=== PATIENT | male | born 1970 | race Caucasian/White ===

== ENCOUNTER → 2019-04-23 09:47 | Outpatient (CLI) | payer OTHER, SELFPAY ==
[2019-04-23 11:40] LABS: Alanine Aminotransferase 77 U/L (12-78); Albumin Level 3.9 gm/dL (3.4-5.0); Albumin/Globulin Ratio 1.2 (1.1-1.8); Alkaline Phosphatase 65 U/L (46-116); Anion Gap 10.3 mEq/L (5-15); Aspartate Amino Transferase 25 U/L (15-37); Blood Urea Nitrogen 14 mg/dL (7-18); Calcium 9.3 mg/dL (8.5-10.1); Carbon Dioxide 32 mmol/L (21.0-32.0); Chloride 102 mmol/L (98-107); Chol/HDL Ratio 4.4 (1-3.5); Cholesterol 172 mg/dL (140-200); Estimated Glomerular Filt Rate 71 ml/min (>60); Free Thyroxine Index 2.2 ug/dL (5.93-13.13); GFR (African American) 86 ML/MIN (>60); Globulin 3.2 gm/dl (1.3-3.2); Glucose 107 mg/dL (74-106); HDL Cholesterol 39 mg/dL (27-67); LDL Cholesterol 96 mg/dL (0-130); Potassium 4.3 mmoL/L (3.5-5.1); Sodium 140 mmol/L (136-145); T4 (Thyroxine) 6.4 ug/dl (4.7-13.3); Thyroid Stimulating Hormone 2.69 uIU/ml (0.358-3.740); Total Protein,Serum 7.1 gm/dL (6.4-8.2); Triglycerides 187 mg/dL (30-200); Triiodothryronine (T3) Uptake 34 % (31-39); VLDL Cholesterol 37 mg/dL (0-40)
== END ==
PROVIDERS: Visit Provider Internal Medicine Adolescent Medicine
DX: Z00.00 Encounter for general adult medical examination without abnormal findings (principal)
CPT/HCPCS: 36415; 80053; 80061; 84436; 84443; 84479; 84550

== ENCOUNTER → 2020-02-01 12:43 | Outpatient (CLI) | payer OTHER, SELFPAY ==
[2020-02-01 13:32] LABS: Basophils # 0.1 K/mm3 (0-0.2); Basophils % 0.7 % (0.1-2.0); Eosinophils # 0.2 K/mm3 (0.0-0.4); Eosinophils % 2.2 % (0.1-12.0); Hematocrit 43.6 % (42.0-52.0); Hemoglobin 14.9 g/dL (14.1-18.0); Lymphocytes # 1.6 K/mm3 (0.7-4.5); Lymphocytes % 17.8 % (10-50); Mean Corpuscular HGB Conc 34.1 g/dL (31.8-35.4); Mean Corpuscular Hemoglobin 27.4 pg (27.0-31.2); Mean Corpuscular Volume 80.4 fl (80-94); Mean Platelet Volume 7.2 fl (7.4-10.4); Monocytes # 0.6 K/mm3 (0.1-1.0); Monocytes % 6.7 % (1.7-9.3); Neutrophils # 6.4 K/mm3 (1.8-7.8); Neutrophils % 72.7 % (37.0-80.0); Platelet Count 263 K/mm3 (142-424); Red Blood Count 5.42 M/mm3 (4.60-6.20); Red Cell Distribution Width 14.4 % (11.5-17.5); White Blood Count 8.9 K/mm3 (4.8-10.8)
[2020-02-01 15:09] LABS: Chloride 102 mmol/L (98-107)
[2020-02-01 15:10] LABS: Potassium 3.9 mmoL/L (3.5-5.1); Sodium 139 mmol/L (136-145)
[2020-02-01 15:12] LABS: Alanine Aminotransferase 63 U/L (12-78); Aspartate Amino Transferase 40 U/L (17-59); Blood Urea Nitrogen 13 mg/dl (9-20); Estimated Glomerular Filt Rate 89 ml/min (>60); GFR (African American) 108 ML/MIN (>60)
[2020-02-01 15:13] LABS: Albumin Level 4.6 g/dl (3.5-5.0); Albumin/Globulin Ratio 1.9 (1.1-1.8); Alkaline Phosphatase 42 U/L (38-126); Anion Gap 12.9 mEq/L (5-15); Bilirubin,Total 1.1 mg/dl (0.2-1.3); Calcium 9.9 mg/dl (8.4-10.2); Carbon Dioxide 28 mmol/L (22.0-30.0); Globulin 2.4 g/dL (1.3-3.2); Glucose 86 mg/dl (74-100); Uric Acid 6.1 mg/dl (3.5-8.5)
== END ==
PROVIDERS: Visit Provider Nurse Practitioner Family
DX: L50.9 Urticaria, unspecified (principal); L30.9 Dermatitis, unspecified; M10.9 Gout, unspecified
CPT/HCPCS: 36415; 80053; 84550; 85025

== ENCOUNTER → 2020-10-31 15:53 | Outpatient (CLI) | payer OTHER, SELFPAY ==
[2020-10-31 16:00] LABS: Basophils # 0.1 K/mm3 (0-0.2); Basophils % 0.5 % (0.1-2.0); Eosinophils # 0.2 K/mm3 (0.0-0.4); Eosinophils % 1.8 % (0.1-12.0); Hematocrit 51.7 % (42.0-52.0); Hemoglobin 17.5 g/dL (14.1-18.0); Lymphocytes # 1.8 K/mm3 (0.7-4.5); Lymphocytes % 16.2 % (10-50); Mean Corpuscular HGB Conc 33.8 g/dL (31.8-35.4); Mean Corpuscular Volume 82.9 fl (80-94); Monocytes # 0.5 K/mm3 (0.1-1.0); Monocytes % 4.7 % (1.7-9.3); Neutrophils # 8.3 K/mm3 (1.8-7.8); Neutrophils % 76.7 % (37.0-80.0); Platelet Count 273 K/mm3 (142-424); Red Blood Count 6.24 M/mm3 (4.60-6.20); White Blood Count 10.8 K/mm3 (4.8-10.8)
[2020-10-31 16:48] LABS: Alanine Aminotransferase 60 U/L (12-78); Albumin Level 5.1 g/dl (3.5-5.0); Alkaline Phosphatase 52 U/L (38-126); Aspartate Amino Transferase 38 U/L (17-59); Bilirubin,Direct 0.2 mg/dl (0.0-0.4); Bilirubin,Total 1.2 mg/dl (0.2-1.3); Chol/HDL Ratio 3.3 (1-3.5); Cholesterol 157 mg/dl (140-200); HDL Cholesterol 48 mg/dl (40-60); Total Protein,Serum 8.1 g/dl (6.3-8.2); Triglycerides 309 mg/dl (30-150); VLDL Cholesterol 62 mg/dL (0-40)
[2020-10-31 16:51] LABS: Alanine Aminotransferase 60 U/L (12-78); Albumin Level 5.1 g/dl (3.5-5.0); Albumin/Globulin Ratio 1.8 (1.1-1.8); Alkaline Phosphatase 54 U/L (38-126); Anion Gap 12.2 mEq/L (5-15); Aspartate Amino Transferase 37 U/L (17-59); Bilirubin,Total 1.3 mg/dl (0.2-1.3); Blood Urea Nitrogen 18 mg/dl (9-20); Calcium 10.3 mg/dl (8.4-10.2); Carbon Dioxide 30 mmol/L (22.0-30.0); Chloride 102 mmol/L (98-107); Estimated Glomerular Filt Rate 79 ml/min (>60); GFR (African American) 95 ML/MIN (>60); Globulin 2.9 g/dL (1.3-3.2); Glucose 116 mg/dl (74-100); Magnesium 2.3 mg/dl (1.6-2.3); Potassium 4.2 mmoL/L (3.5-5.1); Sodium 140 mmol/L (136-145)
[2020-10-31 17:00] LABS: Direct LDL Cholesterol 61.47 mg/dL (100-129)
[2020-10-31 17:05] LABS: 25-OH Vitamin D, Total 32.2 ng/mL (30-100)
[2020-10-31 17:06] LABS: Free Thyroxine Index 2.1 ug/dL (5.93-13.13); T4 (Thyroxine) 6.8 ug/dl (5.53-11.0); Triiodothryronine (T3) Uptake 31 % (23.5-40.5)
[2020-10-31 17:20] LABS: Thyroid Stimulating Hormone 2.57 uIU/mL (0.465-4.68)
[2020-10-31 17:39] LABS: Vitamin B12 381 pg/mL (239-931)
[2020-11-01 13:45] LABS: Hemoglobin A1C 5.3 % (4.0-6.0)
== END ==
PROVIDERS: Urology; PCP Internal Medicine Adolescent Medicine; Visit Provider Physician Assistant
DX: R06.00 Dyspnea, unspecified (principal); R00.2 Palpitations; E78.5 Hyperlipidemia, unspecified
CPT/HCPCS: 36415; 80053; 80061; 80076; 82306; 82607; 83036; 83735; 84403; 84436; 84443; 84479; 85025; 93270

== ENCOUNTER → 2020-11-16 14:45 | Outpatient (CLI) | payer OTHER, SELFPAY ==
--- NOTE | 2020-11-16 14:46 | CA_ITS ---
APPROVED REPORT EXAM: Comprehensive 2D, Doppler, and color-flow Echocardiogram Bank Vault Clerk: Lizette Martin RVT Ht: 5 ft 8 in Wt: 207lbs BSA: 2.07 BP: 148/94 mmHg Indications: SOA,PALPS,BARAJAS,HT,HLD 2D Dimensions LVOT 1.88 cm (M/F) 1.5-2.5 LA Volume 18.40 mL LA Volume Index 8.88 mL/m2 (M/F) 16-34 M-Mode Dimensions RVDd 3.56 cm (0.9-2.6) LA Diam 4.29 cm (1.9-4.0) LVDd 4.97 cm (3.5-5.7) Ao Diam 3.24 cm (2.0-3.7) LVDs 3.45 cm (3.5-5.7) IVSd 1.52 cm (0.6-1.1) PWd 0.76 cm (0.6-1.1) EF (Teich) 57.90% FS 30.60% EDV (Teich) 116.60 mL TAPSE 1.75 (<1.7) ESV (Teich) 49.10 mL LV Diastology E Decel Time 150.00 (160-240 msec) E/A Ratio 1.0 MED E' 4.60 (< 7 cm/sec) E'/MED E' Ratio 13.78 (>14) LAT E' 11.70 (<10 cm/sec) E/LAT E' Ratio 5.42 (>14) Aortic Valve AO Peak GR. 5.40 mmHg Mitral Valve MV E Max Pete. 63.00 (40-130 cm/s) MV A Velocity 66.00 (40-130 cm/s) E/A Ratio 0.97 MV Decel. Time 150.00 (160-240 ms) MV PHT 44.00 ms Pulmonary Valve PV Peak Velocity 104.00 (50-150 cm/s) Tricuspid Valve TR P. Velocity 197.00 cm/s RAP Estimate 10.00 mmHg RVSP 25.50 mmHg Left Ventricle Left atrium is mildly enlarged, left ventricle is normal size, mild concentric left ventricular hypertrophy, visually estimated ejection fraction 55% with no regional wall motion abnormality, grade 1 diastolic dysfunction seen without tissue Doppler evidence of raise left atrial pressure. Right Ventricle Right atrium and right ventricle are mildly enlarged with normal contractility. Aortic Valve Aortic valve is minimally thickened and fibrosed, there is no aortic stenosis or aortic insufficiency. Mitral Valve Mitral valve is grossly normal, there is mild mitral regurgitation. Tricuspid Valve Tricuspid valve grossly normal, there is mild tricuspid regurgitation, tricuspid regurgitation jet velocity is inadequate for calculation of the right ventricular systolic pressure. Pulmonic Valve Pulmonic valve is poorly visualized. Great Vessels Aortic root is normal size. Pericardium No significant pericardial effusion noted. Conclusion 1. Mild biatrial abdomen, normal left ventricular size, mild concentric left ventricular hypertrophy, visually estimated ejection fraction 55% with no regional wall motion abnormality, grade 1 diastolic dysfunction seen without tissue Doppler evidence of raise left atrial pressure. 2. Mildly enlarged right ventricle with normal contractility. 3. Mild mitral and tricuspid regurgitation. 4. No significant pericardial effusion noted. Electronically signed by : Roque Guzman, 11/17/2020 14:54:44
== END ==
PROVIDERS: PCP Internal Medicine Adolescent Medicine; Visit Provider Urology
DX: R00.2 Palpitations (principal)
CPT/HCPCS: 93306

== ENCOUNTER 2022-02-24 11:47 | Emergency (ER) | payer OTHER, SELFPAY ==
[2022-02-24 11:50] VITALS: BP 147/82; PULSE 62; RESP 18; TEMP 36.9; O2SAT 99; BMI 30.4
--- NOTE | 2022-02-24 12:32 | HMH.EDUTC ---
[facility] Disposition Clinical Impression: Rash of both hands Disposition: Home, Self-Care Condition on Discharge: Good Instructions: DI for Rash Additional Instructions: Unclear etiology - monitor for worsening of symptoms and return if necessary Try hydrocortisone ointment, Benadryl if needed Can send steroids for you if needed but don't want to interfere with immune response to COVID booster Referrals: Norman Branch MD [Primary Care Provider] - Time of Disposition: 12:43 Medical Decision Making - Judah Inquiry Pt receiving controlled substance: No Vital Signs: 02/24/22 11:50 Temperature 98.4 F Temperature Source Oral Pulse Rate [Right Brachial] 62 Respiratory Rate 18 Blood Pressure [Right Arm] 147/82 H Blood Pressure Mean [Right Arm] 103 Blood Pressure Source [Right Arm] Automatic Cuff Blood Pressure Position [Right Arm] Sitting 02 Sat by Pulse Oximetry 99 [facility] HPI - General Stated complaint: rash/blisters Time Seen by Provider: 02/24/22 12:32 Mode of Arrival: Ambulatory Source of Information: Patient Limitations: No Limitations Description of Symptoms (Recalled from Triage Doc. by RN): PATIENT C/O RED, RAISED SPOTS TO BILATERAL HAND THAT WERE NOTICED TODAY. HE DOES REPORT RECEIVING HIS COVID BOOSTER YESTERDAY HEENT Symptoms (Recalled from RN notes): No Resp Symptoms (Recalled from RN notes): No Skin Symptoms (Recalled from RN notes): Yes MS Symptoms (Recalled from RN notes): No Functional Status (Recalled from RN notes): WNL - History of Present Illness Provider Complaint: Patient had eye exam this am and noticed rash on hands. 4-5 scattered red spots on outer aspect of both hands. One popped and bled a small amount. They do not itch or hurt. No new exposures. Had 4th COVID vaccine yesterday, but no other issues. No rash or pain at injection site. No lesions in mouth or on feet. No malaise, fever, mouth pain, swelling, shortness of breath. Onset (ago): hour(s) (4) Location: left, right, upper extremity Radiation: non-radiation Relieving factors: none Exacerbating factors: none Associated symptoms: denies other symptoms Treatments prior to arrival: none - Related Data Home Medications Medication Instructions Recorded Confirmed Fenofibrate 40 mg PO DAILY 11/16/19 10/31/20 Rosuvastatin Calcium 20 mg PO DAILY 11/16/19 10/31/20 allopurinol 300 mg tablet 300 mg PO DAILY tab 10/31/20 10/31/20 triamterene 37.5 1 tab PO DAILY tab 10/31/20 10/31/20 mg-hydrochlorothiazide 25 mg tablet Allergies Allergy/AdvReac Type Severity Reaction Status Date / Time No Known Allergies Allergy Verified 10/31/20 13:06 - Worker's Comp Is this a Worker's Comp case?: No [facility] History - Hepatitis A Screen Attestation statement:: This patient has been screened for Hepatitis A risk factors. I have reviewed the patient's past medical history: Yes Medical History: Reports:: Hyperlipidemia, Hypertension Denies:: Cancer, Diabetes Mellitus Type 1, Diabetes Mellitus Type 2, Internal Pacemaker, MRSA, Seizures Laterality Cases: Bilateral: Other Other Surgeries: Yes: Other. No: Pacemaker Amputation: No Fractures: No - Social History Smoking Status: Never smoker Alcohol Intake: current Alcohol Intake Frequency:: holidays/special occasions only Substance Use Type: denies use Occupational Status: employed Housing: house Household Members: spouse, children Family Hx:: Hyperlipidemia, Hypertension ROS Obtained: Yes All systems reviewed & no additional complaints - Integumentary/Breasts Skin/Breast: Reports as per HPI, Reports new lesions Physical Exam - General General appearance: alert, in no apparent distress - Head Head exam: atraumatic, normocephalic - Eye Eye exam: Present: PERRL - ENT ENT exam: Present: normal oropharynx, TM's normal bilaterally - Neck Neck exam: Present: normal inspection. Absent: lymphadenopathy - Chest Chest inspection: Present: normal inspection,
[2022-02-24 12:51] VITALS: BP 147/82; PULSE 62; RESP 18; TEMP 36.9; O2SAT 99
== END 2022-02-24 12:54 | disposition home or self-care (01) ==
PROVIDERS: Emergency Provider Physician Assistant; PCP Internal Medicine Adolescent Medicine
DX: R21 Rash and other nonspecific skin eruption (principal); E78.5 Hyperlipidemia, unspecified; I10 Essential (primary) hypertension
CPT/HCPCS: 99211; G0463

== ENCOUNTER → 2022-11-26 11:17 | Outpatient (CLI) | payer OTHER, SELFPAY ==
--- NOTE | 2022-11-26 11:24 | XR_ITS ---
FINAL REPORT CLINICAL HISTORY: ACUTE COUGH x's several months COMPARISON: none FINDINGS: PA and lateral views of the chest were obtained. There is no prior exam for comparison. The cardiac and mediastinal silhouettes are within normal limits. The lungs are clear. There is no pleural effusion or pneumothorax. No acute osseous abnormality is identified. IMPRESSION: No radiographic evidence of acute cardiac or pulmonary disease. Reviewed, Interpreted and Dictated by Krystal Christianson MD Transcribed by Annmarie Gonzales Authenticated and [facility]
[2022-11-26 12:29] LABS: Basophils # 0.1 K/mm3 (0-0.2); Basophils % 0.9 % (0.1-2.0); Eosinophils # 0.4 K/mm3 (0.0-0.4); Eosinophils % 4.5 % (0.1-12.0); Hematocrit 47.1 % (42.0-52.0); Hemoglobin 16.5 g/dL (14.1-18.0); Lymphocytes # 1.6 K/mm3 (0.7-4.5); Lymphocytes % 17.2 % (10-50); Mean Corpuscular HGB Conc 35.1 g/dL (31.8-35.4); Mean Corpuscular Hemoglobin 28.5 pg (27.0-31.2); Mean Corpuscular Volume 81.1 fl (80-94); Mean Platelet Volume 7.3 fl (7.4-10.4); Monocytes # 0.4 K/mm3 (0.1-1.0); Monocytes % 4.7 % (1.7-9.3); Neutrophils # 6.8 K/mm3 (1.8-7.8); Neutrophils % 72.7 % (37.0-80.0); Platelet Count 296 K/mm3 (142-424); Red Blood Count 5.81 M/mm3 (4.60-6.20); Red Cell Distribution Width 14.4 % (11.5-17.5); White Blood Count 9.3 K/mm3 (4.8-10.8)
[2022-11-26 13:24] LABS: Alanine Aminotransferase 46 U/L (12-78); Albumin Level 4.5 g/dl (3.5-5.0); Albumin/Globulin Ratio 1.7 (1.1-1.8); Alkaline Phosphatase 46 U/L (38-126); Anion Gap 5.3 mEq/L (5-15); Aspartate Amino Transferase 35 U/L (17-59); Bilirubin,Total 0.8 mg/dl (0.2-1.3); Blood Urea Nitrogen 16 mg/dl (9-20); Calcium 9.3 mg/dl (8.4-10.2); Carbon Dioxide 30 mmol/L (22.0-30.0); Chloride 108 mmol/L (98-107); Estimated Glomerular Filt Rate 70 ml/min (>60); GFR (African American) 85 ML/MIN (>60); Globulin 2.6 g/dL (1.3-3.2); Glucose 82 mg/dl (74-100); Potassium 4.3 mmoL/L (3.5-5.1); Sodium 139 mmol/L (136-145); Total Protein,Serum 7.1 g/dl (6.3-8.2)
[2022-11-30 04:23] LABS: Immunoglobulin E, Total 125 IU/mL (6-495)
== END ==
LOC: LAB 11:19
PROVIDERS: PCP Internal Medicine Adolescent Medicine; Visit Provider Internal Medicine Adolescent Medicine
DX: R05.1 Acute cough (principal); Z87.09 Personal history of other diseases of the respiratory system
CPT/HCPCS: 36415; 71046; 80053; 82785; 85025

== ENCOUNTER → 2022-12-19 14:41 | Outpatient (CLI) | payer OTHER, SELFPAY ==
--- NOTE | 2022-12-19 15:28 | PC.NURSE ---
PFT Completed without incident. Albuterol 0.083% given via HHN, Per protocol, Pt tolerated tx well.
== END ==
PROVIDERS: PCP Internal Medicine Adolescent Medicine; Visit Provider Internal Medicine Adolescent Medicine
DX: R00.2 Palpitations (principal); R05.1 Acute cough; R53.83 Other fatigue
CPT/HCPCS: 94060; 94726; 94729

== ENCOUNTER 2024-02-21 12:42 | Outpatient (CLI) | payer OTHER, SELFPAY ==
[2024-02-21 14:04] LABS: Chloride 105 mmol/L (98-107)
[2024-02-21 14:05] LABS: Sodium 139 mmol/L (136-145)
[2024-02-21 14:07] LABS: Alanine Aminotransferase 52 U/L (12-78); Aspartate Amino Transferase 36 U/L (17-59); Blood Urea Nitrogen 16 mg/dl (9-20); Carbon Dioxide 27 mmol/L (22.0-30.0); Estimated Glomerular Filt Rate 88 ml/min (>60); GFR (African American) 106 ML/MIN (>60)
[2024-02-21 14:08] LABS: Albumin Level 4.3 g/dl (3.5-5.0); Albumin/Globulin Ratio 1.7 (1.1-1.8); Alkaline Phosphatase 45 U/L (38-126); Calcium 9.6 mg/dl (8.4-10.2); Chol/HDL Ratio 2.6 (1-3.5); Cholesterol 124 mg/dl (140-200); Globulin 2.5 g/dL (1.3-3.2); Glucose 148 mg/dl (74-100); HDL Cholesterol 48 mg/dl (40-60); Total Protein,Serum 6.8 g/dl (6.3-8.2); Triglycerides 144 mg/dl (30-150); VLDL Cholesterol 29 mg/dL (0-40)
[2024-02-21 14:19] LABS: Direct LDL Cholesterol 58.48 mg/dL (100-129); Uric Acid 5.8 mg/dl (3.5-8.5)
== END 2024-02-21 23:59 | disposition home or self-care (01) ==
LOC: LAB 12:43
PROVIDERS: PCP Internal Medicine Adolescent Medicine; Visit Provider Nurse Practitioner Family
DX: E78.5 Hyperlipidemia, unspecified (principal); I10 Essential (primary) hypertension; M10.9 Gout, unspecified
CPT/HCPCS: 36415; 80053; 80061; 84550

== ENCOUNTER 2025-07-03 10:16 | Outpatient (CLI) | payer BC, SELFPAY ==
--- OUTSIDE RECORDS SUMMARY | 2016-02-09 13:03 | XMS_ITS | Continuity of Care Document ---
Author Organization [facility] Address [address] [place] [address] Phone Care Team Providers Care Audioprosthologist Name Role Phone Diego Gonzalez MD Unavailable Unavailable Allergies, Adverse Reactions, Alerts Substance Reaction Status Criticality No Known Allergies Active No Inform ation Medications Medication Instructions Dosage Effective Dates (start - stop) Status Comments Vitamin D3 1,000 unit tablet take 2 Tablet by Oral route every day 2 Tablet - Active Crestor 20 mg tablet take 1 tablet by or al route every day 20 MG - Active allopurinol 300 mg tablet take 1 Tablet by oral route every day 300 MG - Active Procedures Procedure Date Eye Exam New Patient Comprehensive 1 Or More Visits EYE EXAM & TREATMENT Advance Directives Directive Yes / No Effective Date File Name No Information Encounters Encounter Description Practice Location Reason(s) For Visit Diagnoses Date Provider Providers Copied on Encounter [facility] , [address] [place], [place], [facility], tel:[phone] [facility] No Information 6 Lisa Cortez. [address] [place] [address], [address], [place], [place], [id number] , . tel:[phone] [facility] , [address] [place], [address], [place] tel:[phone] [facility] Comprehensive Exam (chief complaint) Presbyopia 6 Lisa Cortez. [address] [place] [address], [address], [place], [place], [id number] , . [phone] Referring Provider: Kentrell Dixon, [address] [place], [address]. tel:[phone] [facility] , [address] [facility] [address], [place], [address], tel:[phone] [facility] Information 0[address] Miguel Guaman. [address] [place], [place], [id number] . tel:[phone] Referring Provider: Kentrell Dixon, [address] [place], [address]. tel:[phone] Family History Family Member Type Diagnosis Age At Onset Problem (finding) No family history of Ca ncer, unknown Problem (finding) No family history of Di abetes mellitus Problem (finding) No family history of Gl [place] Father Problem (finding) hypertension Problem (finding) No family history of Re tinal disease Father Problem (finding) cataract Payers Payer name Insurance type Covered constitution party ID Authoriza tion(s) [facility] [id number] Social History Type Description Quantity Date Captured Comments Sex Male Smoking Status No Information Chief Complaint And Reason For Visit No Information Reason For Referral Reason For Referral No Information History Of Present Illness Encounter Date Complaint History Of Prese nt Illness Comprehensive Exam The 45 year o ld male presents for evaluation of Comprehensive Exam in the right and left eyes. Patient denies change in vision. Functional Status Date Functional Assessmen t No Information Instructions Date Instruction Additional Infor mathieu - Status post Lasik. No symptoms near or far. Related to See impression details - Return - 2 years Related to Se e impression details Assessments Type Assessment Date No Information Patient Care Teams Name Effective Dates (start - stop) Status Members No Information
--- OUTSIDE RECORDS SUMMARY | 2025-07-03 10:22 | XMS_ITS | Clinical Summary ---
Author Organization [facility] Address [address] [place] [address] Phone [email or web address] Care Team Providers Care Skin Lifter Bacon Name Role Phone Jose Carlos Norman Primary Care Provider [phone] Allergies No known active allergies Medications allopurinol (ZYLOPRIM) 300 MG tablet Take 300 mg by mouth 1 (one) time each day. 04/23/2024 Active fenofibrate (TRICOR) 145 MG tablet Take 145 mg by mouth 1 (one) time each day. 04/23/2024 Active rosuvastatin (CRESTOR) 20 MG tablet Take 20 mg by mouth 1 (one) time each day. 04/23/2024 Active triamterene-hydr oCHLOROthiazide (MAXZIDE-25) 37.5-25 MG per tablet Take 1 tablet by mouth 1 (one) time each day. 04/23/2024 Active Active Problems Problem Noted Date Diagnosed Date Visual impairment Hypertension Social History Tobacco Use Types Packs/Day Years Used Date Smoking Tobacco: Never Smokeless Tobacco: Never Tobacco Cessation:Counseling Given: Not Answered Stress Answer Date Recorded Stress in your Life Not on file 08/06/2024 Dealing with Stress 3 08/06/2024 Sex and Gender Information Value Date Recorded Sex Assigned at Not on file Legal Sex Male 12:36 PM CDT Gender Identity Not on file Sexual Orientation Not on file Last Filed Vital Signs Vital Sign Reading Time Taken Comments Blood Pressure 120/78 06/16/2025 9:22 PM EDT Pulse 70 06/16/2025 9:22 PM EDT Temperature 36.7 C (98.1 F) 06/16/2025 9:22 PM EDT Respiratory Rate 14 05/15/2024 3:30 PM EDT Oxygen Saturation 98% 05/15/2024 3:30 PM EDT Inhaled Oxygen Concentration - - Weight 85.7 kg (189 lb) 06/16/2025 9:22 PM EDT Height 175.3 cm (5' 9 ) 06/16/2025 9:22 PM EDT Body Mass Index 27.91 06/16/2025 9:22 PM EDT Plan of Treatment Health Maintenance Due Date Last Done Comments CT Colonography 1969 Colonoscopy 1969 Colorectal Cancer Screening Combo 1969 DNA Cologuard 1969 Dental Cleaning/Exam 1969 FIT or FOBT Test 1969 HIV Screening 1969 Hepatitis C Screening 1969 Sigmoidoscopy 1969 Hep B Infection Screening - Triple Screen 1987 Hepatitis B Immunization (1 of 3 - 19+ 3-dose series) 1988 Tetanus Diphtheria and Pertussis Immunization (1 - Tdap) 1988 Pneumococcal: 50+ Years (1 of 1 - PCV) 2019 Zoster Immunization (1 of 2) 2019 Annual Preventive Exam 05/15/2025 05/15/2024 Covid-19 Immunization ( season) 2025 08/31/2023, 07/27/2022, 02/23/2022, Additional history exists Influenza Immunization (#1) 2025 07/08/2021 Hepatitis A Immunization Aged Out 11/21/2018, 03/30 No longer eligible based on patient's age to complete this topic HIB Immunization Aged Out No longer e ligible based on patient's age to complete this topic HPV Immunization Aged Out No longer e ligible based on patient's age to complete this topic Polio Immunization Aged Out No longer eligible based on patient's age to complete this topic Care Teams Skin Lifter Bacon Relationship Specialty Start Date End Date Jose CarlosNorman [place], [place] [address] PCP - General 05/19/24
[2025-07-03 11:44] LABS: Alanine Aminotransferase 31 U/L (12-78); Albumin Level 4.4 g/dl (3.5-5.0); Albumin/Globulin Ratio 2.0 (1.1-1.8); Alkaline Phosphatase 57 U/L (38-126); Anion Gap 14.4 mEq/L (5-15); Aspartate Amino Transferase 25 U/L (17-59); Bilirubin,Total 1.1 mg/dl (0.2-1.3); Blood Urea Nitrogen 15 mg/dl (9-20); Calcium 9.9 mg/dl (8.4-10.2); Carbon Dioxide 27 mmol/L (22.0-30.0); Chloride 103 mmol/L (98-107); Creatinine,Serum 0.90 mg/dl (0.66-1.25); Estimated Glomerular Filt Rate 88 ml/min (>60); GFR (African American) 106 ML/MIN (>60); Globulin 2.2 g/dL (1.3-3.2); Glucose 80 mg/dl (74-100); Potassium 3.4 mmoL/L (3.5-5.1); Sodium 141 mmol/L (136-145); Total Protein,Serum 6.6 g/dl (6.3-8.2)
== END 2025-07-03 23:59 | disposition home or self-care (01) ==
LOC: LAB 10:20
PROVIDERS: PCP Internal Medicine Adolescent Medicine; Visit Provider Nurse Practitioner Family
DX: B35.9 Dermatophytosis, unspecified (principal); Z51.81 Encounter for therapeutic drug level monitoring
CPT/HCPCS: 36415; 80053

== ENCOUNTER 2025-08-16 06:55 | Day surgery (SDC) | payer BC, SELFPAY ==
--- NOTE | 2025-08-12 07:12 | EXP.HP ---
History of Present Illness *Admission Date: 08/16/25 *History of present illness: Mr. Kumar is a 54-year-old gentleman who is here for screening/surveillance colonoscopy secondary to a personal history of adenomatous colon polyps. He did have initial screening colonoscopy in October 2019 and had 5 polyps (tubular adenomas x 5) removed. He reports no abdominal pain, weight loss, change in his bowel habits or rectal bleeding. He reports no family history of colon cancer. The examination is deemed medically necessary for screening/surveillance colonoscopy. The patient has been seen, interviewed and examined prior to the procedure by both myself and the anesthesia provider. [facility] Disclaimer: The information contained in this section may have been updated after the patient was seen, as this information can be updated by other users. 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 current occupational exposures/hazards: No caffeine: Yes Have you lived/traveled outside US in past 30 days?: No Contact w/someone who lives/traveled outside US past 30 days?: No Exposure to someone with infectious disease in past 14 days?: No Do you have a fever (greater than 100.4 F or 38 C)?: No Have you tested positive for COVID-19?: No Exposed to someone with COVID-19 in past 14 days?: No Do you have a sore throat?: No Do you have a cough?: No Do you have any weakness?: No Do you have any diarrhea?: No Are you experiencing any unusual bleeding?: No Do you have any muscle aches/pain?: No Do you have any abdominal pain?: No Are you experiencing loss of taste or smell?: No Other Medical History Have you received the Flu Vaccine for this season: Yes Have you received the Pneumonia Vaccine: No Review of Systems Review of Systems Review of systems (narrative): Negative *Cardiovascular Comments: Negative *Gastrointestinal Comments: Negative *Genitourinary Comments: Negative *Musculoskeletal Comments: Negative *Neurologic Comments: Negative Meds Home Medications and Allergies Home Medications ?Medication ?Instructions ?Recorded ?Confirmed ?Type fenofibrate 40 mg tablet 40 mg PO DAILY Pain 11/16/19 08/13/25 History rosuvastatin 20 mg tablet 20 mg PO DAILY cholestrol 11/16/19 08/13/25 History allopurinol 300 mg tablet 300 mg PO DAILY gout 10/31/20 08/13/25 History triamterene 37.5 1 tab PO DAILY 10/31/20 08/13/25 History mg-hydrochlorothiazide 25 mg tablet tadalafil 5 mg tablet (Cialis) 5 mg PO DAILY 08/13/25 08/13/25 History New Prescriptions to Start Prescriptions: Allergies Allergy/AdvReac Type Severity Reaction Status Date / Time No Known Allergies Allergy Verified 08/16/25 07:34 Exam *Routine HEENT Exam Head: Present normocephalic Eye: Present EOMI and PERRL ENT: Present mucous membranes moist *Routine Neck Exam Neck: Present supple *Routine Respiratory Exam Respiratory: Present CTA bilaterally *Routine Cardiovascular Exam Cardiovascular: Present RRR *Routine Abdominal Exam Abdominal: Present soft and normoactive bowel sounds; Absent tenderness *Routine Rectal Exam Rectal:: deferred *Routine Genitalia Exam Genitalia:: deferred *Routine Extremities Exam Extremities: Absent cyanosis, clubbing or edema *Routine Skin Exam Skin: Present warm; Absent rash *Routine Neurological Exam Neurological: Present alert and oriented X3 Assessment and Plan *Assessment and plan (1) Personal history of adenomatous and serrated colon polyps: Status: Acute Category: Medical Code(s): Z86.0101 - Personal history of adenomatous and serrated colon polyps (2) Screening for colon cancer: Status: Acute Category: Medical Code(s): Z12.11 - Encounter for screening for malignant neoplasm of colon Plan A/P: 1. Personal history of adenomatous colon polyps is the preprocedural diagnosis. The patient will be anesthetized/sedated using MAC sedation. The patient has been seen and examined. Cardiac and lung assessment prior to the examination is stable. Proceed with planned screening colonoscopy.
[2025-08-13 10:52] VITALS: BMI 27.1
--- NOTE | 2025-08-16 06:53 | HMH.PROCNOTE ---
[facility] Procedure Note Date: 08/16/25 Time: 09:20 Procedure Note:: Colonoscopy Procedure Report: Colonoscopy with cold snare polypectomy Endoscopist: Jordan Ham II, MD Referring physician: Norman Branch M.D. Date of Procedure: August 16, 2025 Equipment: Olympus [id number] adult colonoscope Sedation: MAC sedation Indication: Mr. Kumar is a 54-year-old gentleman who is here for screening/surveillance colonoscopy secondary to a personal history of adenomatous colon polyps. He did have initial screening colonoscopy in October 2019 and had 5 polyps (tubular adenomas x 5) removed. He reports no abdominal pain, weight loss, change in his bowel habits or rectal bleeding. He reports no family history of colon cancer. The examination is deemed medically necessary for screening/surveillance colonoscopy. Procedure: Prior to the procedure, a history and physical exam was performed, and patient's medications and allergies were reviewed. The risks, benefits and alternatives of the sedation and procedure were discussed with the patient. All questions were answered and informed consent was obtained. The patient was brought to the procedure room. Patient identification and proposed procedure were verified by the physician and the nurse. The patient was placed in a left lateral decubitus position and the scope was passed under direct vision. Throughout the procedure, the patient's blood pressure, pulse, and oxygen saturations were monitored continuously. The colonoscopy was accomplished without difficulty. The patient tolerated the procedure well. Findings: On digital rectal examination there was normal rectal tone. There were no external hemorrhoids. The prostate was 2-3+, smooth, soft, symmetric without nodules. The colonoscope was introduced through the anal canal to the rectum and advanced to the cecum. The ileocecal valve and appendiceal orifice were identified. The scope was advanced a short distance into the ileum which appeared grossly normal. The scope was then withdrawn into the colon. There were 2 diminutive polyps (transverse x 1 (4 mm) and sigmoid x 1 (3 mm)). Both of these were removed via cold snare polypectomy. The remaining cecum, ascending, transverse, descending, sigmoid and rectum were grossly normal. There were no other mucosal abnormalities identified. Upon retroflexion within the rectum there were grade 1-2 internal hemorrhoids. The preparation was fair throughout with Elon Preparation Score of 7 out of 9. There was a fair amount of plant residue. The cecal time was 14 minutes. Impression: 1. Diminutive colonic polyps x 2 Plan: I will follow-up the polyp histology and recommend repeat screening/surveillance colonoscopy again in 5 years.
[2025-08-16 07:37] VITALS: BP 120/73; PULSE 60; RESP 17; TEMP 36.3; O2SAT 96
[2025-08-16] MEDS: LACTATED RINGERS 1000ML 1,000 ML 50 ML IV (07:47)
--- NOTE | 2025-08-16 08:01 | EXP.ANES.CKL ---
[facility] Disclaimer: The information contained in this section may have been updated after the patient was seen, as this information can be updated by other users. 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 current occupational exposures/hazards: No caffeine: Yes Have you lived/traveled outside US in past 30 days?: No Contact w/someone who lives/traveled outside US past 30 days?: No Exposure to someone with infectious disease in past 14 days?: No Do you have a fever (greater than 100.4 F or 38 C)?: No Have you tested positive for COVID-19?: No Exposed to someone with COVID-19 in past 14 days?: No Do you have a sore throat?: No Do you have a cough?: No Do you have any weakness?: No Do you have any diarrhea?: No Are you experiencing any unusual bleeding?: No Do you have any muscle aches/pain?: No Do you have any abdominal pain?: No Are you experiencing loss of taste or smell?: No [facility] Anesthesia Checklist Patient Identification Patient Identification: Arm Band and Family Structural Data Admitted From: Home Planned Operative Procedure/s: Colonoscopy Consent for Planned Operative Procedure(s) Verified: Yes Verified Documents: Surgical Consent and History and Physical NPO Status Verified Time NPO: 00:00 Additional verifications Patient : No Anesthesia Reactions: No Hx Blood Transfusions: No Blood Transfusion Reaction: No Cephalosporin Allergy: No Previous Colonoscopy: No Cardiovascular Assessment Peripheral Edema: No Airway Assessment Mallampati Score:: Class II C-Spine Mobility Assessed: Yes TMJ Mobility Assessed: Yes Dentition: Good Dentition Neurological Assessment Level of Consciousness: Awake, Alert, Appropriate and Follows Commands Hx Seizures: No Numbness or tingling in extremities: No Anesthesia Plan Anesthesia Risk discussed: Yes ASA Class: II Anesthesia Type: MAC
[2025-08-16 09:21] VITALS: BP 102/62; PULSE 56; RESP 14; TEMP 36.4; O2SAT 95
[2025-08-16 09:31] VITALS: BP 97/61; PULSE 55; RESP 16; TEMP 36.4; O2SAT 97
[2025-08-16 09:41] VITALS: BP 148/73; PULSE 65; RESP 17; TEMP 36.4; O2SAT 97
[2025-08-16 09:51] VITALS: BP 117/80; PULSE 55; RESP 18; TEMP 36.4; O2SAT 98
== END 2025-08-16 10:10 | disposition home or self-care (01) ==
PROVIDERS: PCP Internal Medicine Adolescent Medicine; Visit Provider Internal Medicine Gastroenterology
PROC: 0DJD8ZZ Inspection of Lower Intestinal Tract, Via Natural or Artificial Opening Endoscopic (ICD-10-PCS; CPT 45378; principal; 2025-08-16 09:00)
DX: Z12.11 Encounter for screening for malignant neoplasm of colon (principal); D12.5 Benign neoplasm of sigmoid colon; K64.0 First degree hemorrhoids; K64.1 Second degree hemorrhoids; E78.5 Hyperlipidemia, unspecified; N52.9 Male erectile dysfunction, unspecified; Z86.0101 Personal history of adenomatous and serrated colon polyps
CPT/HCPCS: 45385; J2003; J2704; J7120